=== PATIENT | female | born 1940 | race Caucasian/White ===

== ENCOUNTER 2021-07-05 12:14 | Emergency (ER) | payer MEDICARE, OTHER ==
[~2021-07-05] VITALS: Ht 170.2 cm; Wt 63.6 kg
[2021-07-05] MEDS ORDERED: BAMLANIVIMAB 700mg/20ml inj. 700 MG, ETESEVIMAB 700mg/20mL inj. 1,400 MG in normal sali... IV ONE (12:15)
[2021-07-05 12:43] VITALS: BP 131/40
[2021-07-05] MEDS ORDERED: ALBU6.7H9 INH (13:21)
== END 2021-07-05 16:34 | disposition home or self-care (01) ==
LOC: ER 12:14
DX: U07.1 COVID-19 (principal); R05.9 Cough, unspecified; R53.83 Other fatigue; Z79.899 Other long term (current) drug therapy
CPT/HCPCS: 71045; 99284; M0245; Q0245; Q0239